=== PATIENT | female | born 1960 | race Caucasian/White ===

== ENCOUNTER 2021-07-07 22:04 | Inpatient (IN) | payer MEDICARE, OTHER ==
[~2021-07-07] VITALS: Ht 152.4 cm; Wt 93.6 kg
[2021-07-07 23:58] LABS: HEMOGLOBIN 10.7 gm/dl (12.3-15.3); RED BLOOD COUNT 3.59 M/UL (4.00-5.10); WHITE BLOOD COUNT 9.6 K/UL (4.5-11.0)
[2021-07-08 00:13] LABS: BORDETELLA PARAPERTUSSIS Not Detected (Not Detectd); BORDETELLA PERTUSSIS Not Detected (Not Detectd); CHLAMYDIA PNEUMONIAE Not Detected (Not Detectd); CORONAVIRUS HKU1 Not Detected (Not Detectd); CORONAVIRUS NL63 Not Detected (Not Detectd); CORONAVIRUS OC43 Not Detected (Not Detectd); CORONOAVIRUS 229E Not Detected (Not Detectd); HUMAN METAPNEUMOVIRUS Not Detected (Not Detectd); HUMAN RHINOVIRUS/ENTEROVIRUS Not Detected (Not Detectd); INFLUENZA A Not Detected (Not Detectd); INFLUENZA B Not Detected (Not Detectd); MYCOPLASMA PNEUMONIAE Not Detected (Not Detectd); PARAINFLUENZA VIRUS 1 Not Detected (Not Detectd); PARAINFLUENZA VIRUS 2 Not Detected (Not Detectd); PARAINFLUENZA VIRUS 3 Not Detected (Not Detectd); PARAINFLUENZA VIRUS 4 Not Detected (Not Detectd); RESPIRATORY SYNCYTIAL VIRUS Not Detected (Not Detectd)
[2021-07-08 02:30] LABS: SARS-CoV-2 NOT DETECTED (Not Detectd)
[2021-07-08] MEDS ORDERED: AMITRIPTYLINE H10 MG PO (02:35)
[2021-07-08] MEDS ORDERED: PREGABALIN100 MG PO (02:35)
[2021-07-08] MEDS ORDERED: LEVOTHYROXINE100 MCG PO (02:36)
[2021-07-08] MEDS ORDERED: ZOLPIDEM TARTRAT5 MG PO (02:36)
[2021-07-08] MEDS ORDERED: OLANZAPINE2.5 MG PO (02:37)
[2021-07-08 09:40] LABS: RED BLOOD COUNT 3.67 M/UL (4.00-5.10); WHITE BLOOD COUNT 7.7 K/UL (4.5-11.0)
[2021-07-08] MEDS ORDERED: VITAMIN C500 M4 PO (10:57)
[2021-07-08] MEDS ORDERED: VITAMIN B-122000 MC1 PO (10:57)
[2021-07-08] MEDS ORDERED: DAILY VALUE1 EACH PO (10:58)
[2021-07-08] MEDS ORDERED: TYLENOL EXTRA500 MG PO (10:58)
[2021-07-09 06:42] LABS: HEMOGLOBIN 10.6 gm/dl (12.3-15.3); RED BLOOD COUNT 3.57 M/UL (4.00-5.10); WHITE BLOOD COUNT 9.1 K/UL (4.5-11.0)
[2021-07-09] MEDS ORDERED: LEVOFLOXACIN750 MG PO (12:41)
[2021-07-09] MEDS ORDERED: TAMIFLU 75 MG C75 MG PO (12:41)
--- NOTE | 2021-07-09 14:32 | NUR ---
notified of pt not having o2 tank at bedside pt to go on ra aware
== END 2021-07-09 15:00 | disposition home or self-care (01) | DRG 193 ==
LOC: ER1 22:04 → CDU 07-08 00:59 → M/S 07-08 00:59
PROVIDERS: Internal Medicine; Physician Assistant; Physician Assistant Medical; ADMIT Internal Medicine
DX: J10.08 Influenza due to other identified influenza virus with other specified pneumonia (principal); J96.01 Acute respiratory failure with hypoxia; Z68.41 Body mass index [BMI] 40.0-44.9, adult; Z20.822 Contact with and (suspected) exposure to COVID-19; I73.00 Raynaud's syndrome without gangrene; J15.9 Unspecified bacterial pneumonia; M34.9 Systemic sclerosis, unspecified; R19.7 Diarrhea, unspecified; E03.9 Hypothyroidism, unspecified; E66.01 Morbid (severe) obesity due to excess calories; F32.A Depression, unspecified; G40.909 Epilepsy, unspecified, not intractable, without status epilepticus; Z90.49 Acquired absence of other specified parts of digestive tract; Z88.5 Allergy status to narcotic agent; Z88.2 Allergy status to sulfonamides; Z88.8 Allergy status to other drugs, medicaments and biological substances; Z86.11 Personal history of tuberculosis; Z79.899 Other long term (current) drug therapy
CPT/HCPCS: 36415; 36600; 71045; 80048; 80053; 82550; 82553; 82803; 83605; 83735; 83874; 84100; 84484; 85025; 87040; 87633; 93005; 96374; 99285; J1650; J1956